=== PATIENT | male | born 1990 | race Caucasian/White ===

== ENCOUNTER 2016-11-09 06:49 | Day surgery (SDC) | payer BC ==
[2016-11-09] MEDS ORDERED: LR 1,000 ML IV ONE (07:03)
--- NOTE | 2016-11-09 07:30 | PDGENHP ---
History & Physical Chief Complaint: n/v/diarrhea/hematochezia/mleena History of Present Illness: see above Pertinent Past, Social, Family History: reviewed Relevant Physical Exam: nad Cardiorespiratory Assessment: rrr. ctab
[2016-11-09] MEDS ORDERED: PROPOFOL 200 MG/20 ML VIAL ONE ×3 (08:02→08:28)
--- NOTE | 2016-11-09 08:06 | PDANEPAE ---
ANE History of Present Illness 25 year old male with history of GI bleed presents for EGD and colonoscopy. Patient has history of opiate abuse and marjuana use. ANE Past Medical History - Cardiovascular History Hx Hypertension: No Hx Arrhythmias: No Hx Chest Pain: No Hx Coronary Artery / Peripheral Vascular Disease: No Hx CHF / Valvular Disease: No Hx Palpitations: No - Pulmonary History Hx COPD: No Hx Asthma/Reactive Airway Disease: No Hx Recent Upper Respiratory Infection: No Hx Oxygen in Use at Home: No Hx Sleep Apnea: No Sleep Apnea Screening Result - Last Documented: Negative - Neurologic History Hx Cerebrovascular Accident: No Hx Seizures: No Hx Dementia: No - Endocrine History Hx Diabetes: No Hypothyroid: No Hyperthyroid: No Obesity: no - Renal History Hx Renal Disorders: No - Liver History Hx Hepatic Disorders: No - Neurological & Psychiatric Hx Hx Neurological and Psychiatric Disorders: No Neurological / Psychiatric History Comment: ANXIETY & DEPRESSION - Cancer History Hx Cancer: No - Congenital Disorder History Hx Congenital Disorders: No - GI History Hx Gastrointestinal Disorders: Yes Gastrointestinal History Comment: NAUSEA, VOMITING, DIARRHEA, STOMACH CRAMPS - Other Health History Other Health History: NEG - Chronic Pain History Chronic Pain: No - Surgical History Prior Surgeries: NONE ANE Review of Systems - Exercise capacity Exercise capacity: >=4 METS METS (RN): 5 METS ANE Patient History - Allergies Allergies/Adverse Reactions: No Known Allergies Allergy (Unverified 11/04/15 19:01) - Home Medications Home medications: home medication list seen and reviewed Home Medications: Omeprazole 11/08/16 [Last Taken 11/09/16 06:00] - NPO status NPO Status: no food or drink >8 hours NPO Since - Liquids (Date): 11/09/16 NPO Since - Liquids (Time): 06:20 NPO Since - Solids (Date): 11/08/16 NPO Since - Solids (Time): 08:00 - Anes Hx Anes Hx: no prior problems - Smoking Hx Smoking Status: Current every day smoker - Alcohol Use Alcohol Use: Rarely - Family Anes Hx Family Anes Hx: neg - N/A Family Hx Anesthesia Complications: NONE ANE Labs/Vital Signs - Vital Signs Vital Signs: reviewed preoperatively; see RN documention for details Blood Pressure: 155/88 Heart Rate: 96 Respiratory Rate: 16 O2 Sat (%): 95 Height: 165.1 cm Weight: 68.039 kg ANE Physical Exam - Airway Neck exam: FROM Mallampati Score: Class 2 Mouth exam: ledezma - Pulmonary Pulmonary: no respiratory distress - Cardiovascular Cardiovascular: regular rate and rhythym - ASA Status ASA Status: II ANE Anesthesia Plan Anesthesia Plan: general endotracheal anesthesia Total IV Anesthesia: Yes
[2016-11-09] MEDS ORDERED: MIDAZOLAM 2 MG/2 ML VIAL ONE (08:07)
[2016-11-09] MEDS ORDERED: fentaNYL 100 MCG/2 ML INJ IVP PRN (08:25)
[2016-11-09] MEDS ORDERED: MEPERIDINE 25 MG/ML SYR IVP PRN (08:25)
[2016-11-09] MEDS ORDERED: LR 500 ML IV PRN (08:25)
[2016-11-09] MEDS ORDERED: NALOXONE HCL 0.4 MG/ML INJ IVP PRN (08:25)
[2016-11-09] MEDS ORDERED: ONDANSETRON 4 MG/2 ML VIAL IVP PRN (08:25)
[2016-11-09] MEDS ORDERED: ONDANSETRON 4 MG/2 ML VIAL ONE (08:34)
--- NOTE | 2016-11-09 09:30 | GPN ---
[f rep st] PROCEDURE NOTE DATE OF PROCEDURE: 11/09/2016 PROCEDURE: Esophagogastroduodenoscopy with biopsy and colonoscopy with biopsy. INDICATION: Nausea, vomiting, diarrhea, hematochezia, melena. CONSENT: Informed consent was obtained from the patient after an explanation of risks, benefits, and alternatives to the procedure. MEDICATIONS GIVEN: Per Anesthesia. DESCRIPTION OF EXAM: After adequate sedation was achieved, the endoscope was advanced under direct vision through the mouth and as far as the second portion of the duodenal. Retroflexion was performed in the stomach. Views were good. Patient tolerance was good. Findings as below. After the upper endoscopy portion of the exam, the patient was turned and the scope was switched to an adult colonoscope. This was then advanced under direct vision through the anal orifice and as far as the cecum and terminal ileum. Retroflexion was performed in the ascending colon and in the rectum. The views were good. The patient prep quality was good. The patient tolerance of exam was good. ESTIMATED BLOOD LOSS: None. COMPLICATIONS: None. FINDINGS: 1. Normal esophagus. 2. Mild gastritis characterized by erythema was seen in the stomach. No obvious ulceration or source of bleeding was seen on careful exam in the stomach. Biopsies were obtained from the antrum and body to assess for H. pylori or other histologic abnormalities. 3. Duodenum was normal in the bulb through to the second portion. Random biopsies were obtained from both the bulb and the second portion to assess for celiac disease. 4. Terminal ilium was normal. Approximately 15 cm were able to be easily examined. 5. The cecum, ascending colon, transverse colon, descending colon, sigmoid colon were all normal with normal appearing mucosa. Random biopsies were obtained to assess for microscopic colitis. 6. The rectum was notable for a mild proctitis characterized by multiple very small erosions without any large ulcerations. Biopsies were obtained of the proctitis. 7. Single 1 mm sessile polyp found in the rectum and removed with cold biopsy forceps. 8. Medium-sized internal hemorrhoids were seen. IMPRESSION: No obvious source of melena, nausea, or vomiting was seen. Diarrhea and/or hematochezia may in part be related to proctitis, although this also may be prep related. RECOMMENDATIONS: 1. Await biopsy results. 2. Follow up with Jen Navarro PA-C in the GI clinic. 3. Resume regular medications. 4. Resume regular diet. 5. Patient given information regarding when to call with any concerns post procedure. 6. Repeat colonoscopy date determined by pathology results. /[id number]/MODL MTDD
--- NOTE | 2016-11-09 09:37 | POSTANESTH ---
Post Anesthetic Evaluation Cardiovascular Status: Normal, Stable Respiratory Status: Normal, Stable Level of Consciousness/Mental Status: Can Participate in Eval Pain Control: Adequate, Prn Tx Ordered Nausea/Vomiting Control: Adequate, Prn Tx Ordered Complications Possibly Related to Anesthesia: None Noted
[2016-11-09 09:54] VITALS: PULSE 75; RESP 16; TEMP 97.9
[2016-11-09 10:15] VITALS: BP 114/70; O2SAT 99
== END 2016-11-09 10:19 | disposition home or self-care (01) ==
LOC: FSGY 06:49
PROVIDERS: ATTEND Internal Medicine
DX: K62.1 Rectal polyp (principal); K29.60 Other gastritis without bleeding; K62.89 Other specified diseases of anus and rectum; K64.8 Other hemorrhoids
CPT/HCPCS: J2250; J2405; J2704